=== PATIENT | male | born 1990 | race Hispanic/Latino ===

== ENCOUNTER 2023-02-09 10:29 | Emergency (ER) | payer OTHER, SELFPAY ==
--- OUTSIDE RECORDS SUMMARY | 2023-02-09 10:35 | XMS REPORT | Continuity of Care Document ---
:1990 Author Organization [facility] t Address [address] [facility] [address] [place] [address] Care Team Providers Name Role Phone Jenni Dhillon Primary Care Physician [phone] Problems This patient has no known problems. Allergies, Adverse Reactions, Alerts This patient has no known allergies or adverse reactions. Medications Ordered Filled Start Stop Current Ordering Indication Dosage Frequency Signature Comments Components Source Medication Medication Date Date Medication? Clinician (SIG) Name Name TAKE 1 0 No TABLET 9-14 TWICE 00:00: DAILY. 00 TAKE 1 0 No TABLET 9-14 TWICE 00:00: DAILY. 00 TAKE 1 2021-0 No TABLET 9-14 TWICE 00:00: DAILY. 00 Dose 2021-0 No Unknown 1-31 00:00: 00 Dose 2021-0 No Unknown 1-31 00:00: 00 Dose 2021-0 No Unknown 1-31 00:00: 00 Dose 2021-0 No Unknown 1-24 00:00: 00 Dose 2021-0 No Unknown 1-24 00:00: 00 Dose 2021-0 No Unknown 1-24 00:00: 00 Vital Signs Vital Name Observation Time Observation Value Comments Source BP Systolic 2022-07-03 09:02:00 157 mm[Hg] BP Diastolic 2022-07-03 09:02:00 92 mm[Hg] Weight Measured 2022-07-03 09:02:00 273.60 pounds Height Measured 2022-07-03 09:02:00 70.00 inches Body Temperature 2022-07-03 09:02:00 98.10 degrees Heart Rate 2022-07-03 09:02:00 87.00 /min Respiratory Rate 2022-07-03 09:02:00 16.00 /min BP Systolic 2022-06-05 08:58:00 174 mm[Hg] BP Diastolic 2022-06-05 08:58:00 99 mm[Hg] Weight Measured 2022-06-05 08:58:00 281.00 pounds Height Measured 2022-06-05 08:58:00 70.00 inches Body Temperature 2022-06-05 08:58:00 98.30 degrees Heart Rate 2022-06-05 08:58:00 81.00 /min Respiratory Rate 2022-06-05 08:58:00 18.00 /min BP Systolic 2022-06-03 11:35:00 170 mm[Hg] BP Diastolic 2022-06-03 11:35:00 104 mm[Hg] Weight Measured 2022-06-03 11:35:00 279.60 pounds Height Measured 2022-06-03 11:35:00 70.00 inches Body Temperature 2022-06-03 11:35:00 98.20 degrees Heart Rate 2022-06-03 11:35:00 83.00 /min Respiratory Rate 2022-06-03 11:35:00 16.00 /min BP Systolic 2021-10-28 09:05:00 158 mm[Hg] BP Diastolic 2021-10-28 09:05:00 95 mm[Hg] Weight Measured 2021-10-28 09:05:00 260.00 pounds Height Measured 2021-10-28 09:05:00 70.00 inches Body Temperature 2021-10-28 09:05:00 97.80 degrees Heart Rate 2021-10-28 09:05:00 80.00 /min Respiratory Rate 2021-10-28 09:05:00 16.00 /min BP Systolic 2021-10-14 17:03:00 165 mm[Hg] BP Diastolic 2021-10-14 17:03:00 95 mm[Hg] Weight Measured 2021-10-14 17:03:00 260.20 pounds Height Measured 2021-10-14 17:03:00 70.00 inches Body Temperature 2021-10-14 17:03:00 97.50 degrees Heart Rate 2021-10-14 17:03:00 85.00 /min Respiratory Rate 2021-10-14 17:03:00 16.00 /min BP Systolic 2021-10-13 10:19:00 151 mm[Hg] BP Diastolic 2021-10-13 10:19:00 83 mm[Hg] Weight Measured 2021-10-13 10:19:00 255.40 pounds Height Measured 2021-10-13 10:19:00 70.00 inches Body Temperature 2021-10-13 10:19:00 98.10 degrees Heart Rate 2021-10-13 10:19:00 79.00 /min Respiratory Rate 2021-10-13 10:19:00 BP Systolic 2019-01-20 08:49:00 137 mm[Hg] BP Diastolic 2019-01-20 08:49:00 74 mm[Hg] Weight Measured 2019-01-20 08:49:00 208.00 pounds Height Measured 2019-01-20 08:49:00 70.00 inches Body Temperature 2019-01-20 08:49:00 98.10 degrees Heart Rate 2019-01-20 08:49:00 78.00 /min Respiratory Rate 2019-01-20 08:49:00 16.00 /min Procedures This patient has no known procedures. Plan of Care Planned Activity Planned Date Details Comments Source Goal Plan of Care Note [code = 71913-1] Goal Plan of Care Note [code = 82138-0] Goal Plan of Care Note [code = 67117-2] Goal Plan of Care Note [code = 39654-3] Goal Plan of Care Note [code = 79645-2] Goal Plan of Care Note [code = 14544-9] Goal Plan of Care Note [code = 77267-4] Goal Plan of Care Note [code = 62638-5] Goal Plan of Care Note [code = 86662-8] Goal Plan of Care Note [code = 50114-0] Goal Plan of Care Note [code = 29148-9] Goal Plan of Care Note [code = 99451-3] Goal Plan of Care Note [code = 98001-5] Goal Plan of Care Note [code = 04338-0] Goal Plan of Care Note [code = 74195-5] Goal Plan of Care Note [code = 06495-0] Goal Plan of Care Note [code = 29548-2] Goal Plan of Care Note [code = 22129-6] Goal Plan of Care Note [code = 39460-3] Goal Plan of Care Note [code = 79711-5] Goal Plan of Care Note [code = 02720-5] Goal Plan of Care Note [code = 58823-6] Goal Plan of Care Note [code = 81662-2] Goal Plan of Care Note [code = 42472-2] Goal Plan of Care Note [code = 28009-3] Goal Plan of Care Note [code = 83043-6] Goal Plan of Care Note [code = 55993-8] Goal Plan of Care Note [code = 56915-5] Goal Plan of Care Note [code = 82215-2] Goal Plan of Care Note [code = 31565-4] Goal Plan of Care Note [code = 50957-8] Goal Plan of Care Note [code = 30833-6] Goal Plan of Care Note [code = 99929-2] Goal Plan of Care Note [code = 05586-0] Goal Plan of Care Note [code = 16326-7] Goal Plan of Care Note [code = 21266-2] Goal Plan of Care Note [code = 95836-6] Goal Plan of Care Note [code = 89234-0] Goal Plan of Care Note [code = 23724-0] Goal Plan of Care Note [code = 17254-9] Goal Plan of Care Note [code = 07239-4] Goal Plan of Care Note [code = 91039-1] Goal Plan of Care Note [code = 16946-3] Goal Plan of Care Note [code = 52957-5] Goal Plan of Care Note [code = 79445-2] Goal Plan of Care Note [code = 76833-0] Goal Plan of Care Note [code = 38383-6] Goal Plan of Care Note [code = 52694-5] Encounters Start End Encounter Admission Attending Care Care Encounter Source Date/Time Date/Time Type Type Clinicians Facility Department ID 2023-01-25 2023-01-25 Outpatient CHUCK WOODS [id number] [place] 08:30:53 08:30:53 0508 F Portillo 2022-07-10 2022-07-10 Outpatient CHUCK WOODS [id number] [place] 08:38:57 08:38:57 1021 F Portillo 2022-07-03 2022-07-03 Outpatient CHUCK WOODS [id number] [place] 08:55:06 08:55:06 101 F Portillo 2022-07-03 2022-07-03 Outpatient [id number] 00:00:00 00:00:00 Visit 99ad-4aa8 9ad-4aa8-a -k940-e1n 732-f4ad83 [id number] [id number] 2022-06-05 2022-06-05 Outpatient [id number]-3 00:00:00 00:00:00 Visit 5y67-356v t38-298d-i -v6w3-388 2p0-1415ji 6bztf4757 oq9762 2022-06-03 2022-06-03 Outpatient [id number] 00:00:00 00:00:00 Visit ha01-63g7 c32-09i9-n -c5u6-80h 3w5-34ml23 [id number] Results Test Description Test Time Test Comments Results Result Comments Source CULTURE, URINE 2023-01-27 SPECIMEN NUMBER: 14:23:[id number] CULTURE, URINE SPECIMEN NUMBER: [id number] SPECIMEN COMMENT: URINE SOURCE: URINE REPORT STATUS: FINAL FINAL REPORT: 01/27/2023 <10,000 CFU/ML UROGENITAL ELE PRESENT NO COMMON PATHOGENS UNLESS OTHERWISE INDICATED, ALL TESTING PERFORMED AT [facility] [address] [place] [address] CLAIMS CORRESPONDENCE CLERK: LILY PIERRE M.D. CLIA NUMBER [id number] [place]. [id number] HEMOGLOBIN A1c 2022-06-06 09:08:40 Test Item Value Reference Range Interpretation Comme nts HEMOGLOBIN A1c (test code = 6.0 % 4.2-5.6 H UNLESS OTHERWISE INDICATED, ALL 60499) [facility] [address] [place] [address] CLAIMS CORRESPONDENCE CLERK: NICOLA MOLINA M.D. CLIA NUMBER [id number] CAP ACCREDITATION N O. [id number] COMPREHENSIVE METABOLIC [id number] 03:11:24 Test Item Value Reference Range Interpretation Comments GLUCOSE (test code = 104 MG/DL 70-99 H 2217) BUN (test code = 24 MG/DL 6-20 H 2207) CREATININE (test 0.65 MG/DL 0.80-1.40 L code = 2213) eGFR (2020 CKD-EPI) 130 >60 (test code = 22026) ML/MIN/1.73 CALC BUN/CREAT (test 37 RATIO 6-28 H code = 223) SODIUM (test code = 142 MEQ/L 092-242 1614) POTASSIUM (test code 4.0 MEQ/L 3.5-5.4 = 2227) CHLORIDE (test code 103 MEQ/L 95-107 = 2214) CARBON DIOXIDE (test 25 MEQ/L 19-31 code = 2205) CALCIUM (test code = 10.0 MG/DL 8.5-10.5 2208) PROTEIN, TOTAL (test 7.3 G/DL 6.1-8.3 code = 2228) ALBUMIN (test code = 4.4 G/DL 3.5-5.2 2200) CALC GLOBULIN (test 2.9 G/DL 1.9-3.7 code = 2239) CALC A/G RATIO (test 1.5 RATIO 1.0-2.6 code = 2233) BILIRUBIN, TOTAL 0.4 MG/DL See_Comment [Automated message] (test code = 2206) The syste m which generated this result transmit joesph reference range : <=1.2. The refe rence range was not u sed to interpret th is result as normal/abnormal . ALKALINE PHOSPHATASE 106 U/L 40-115 (test code = 2203) AST (test code = 26 U/L 9-50 2217) ALT (test code = 57 U/L 5-50 H 2218) LIPID [id number] 03:11:24 Test Item Value Reference Range Interpretation Comments CHOLESTEROL (test 203 MG/DL <200 H code = 2210) TRIGLYCERIDES (test 92 MG/DL <150 code = 2232) HDL CHOLESTEROL (test 70 MG/DL >39 code = 2220) CALC LDL CHOL (test 113 MG/DL <100 H NOTE: C ALCULATED LDL code = 2237) IS BASED ON GUMARO-CHESTER METHOD WHICHINCLUDES ADJUSTABLE TRIGLYCERIDE:VL DL CHOLESTEROL RAT IO.THIS FACTOR VARIES B Y MEASURED TRIGLY CERIDE AND NON-HDLCHOL ESTEROL CONCENTRATIONS WITH INCREASED CALCU LATED LDL SEENIN HIGH ER TRIGLYCERIDE OR LOWER NON-HDL SPECIME NS. FOR MOREINFORMATION , SEE CLIENT ANNOUNCE MENT AT [email or web address] [email or web address] [email or web address] LDL/HDL 1.61 RATIO <3.55 UNLESS O THERWISE (test code = 2238) INDICATED , ALL TESTING PERFORMED [facility], [facility]. [address] [place] [address] [facility] DIRECTOR: NICOLA MOLINA M.D. IA NUMBER [id number] CAP ACCREDITATION N O. [id number] COMPREHENSIVE METABOLIC [id number] 00:00:00 Test Item Value Reference Range Interpretation Comments GLUCOSE (test code = 2217) 104 MG/DL BUN (test code = 2208) 24 MG/DL CREATININE (test code = 2214) 0.65 MG/DL eGFR (2020 CKD-EPI) (test 130 ML/MIN/1.73 code = 19649) CALC BUN/CREAT (test code = 37 RATIO 2234) SODIUM (test code = 2231) 142 MEQ/L POTASSIUM (test code = 2228) 4.0 MEQ/L CHLORIDE (test code = 2215) 103 MEQ/L CARBON DIOXIDE (test code = 25 MEQ/L 2205) CALCIUM (test code = 2209) 10.0 MG/DL PROTEIN, TOTAL (test code = 7.3 G/DL 2228) ALBUMIN (test code = 2201) 4.4 G/DL CALC GLOBULIN (test code = 2.9 G/DL 0) CALC A/G RATIO (test code = 1.5 RATIO 2233) BILIRUBIN, TOTAL (test code = 0.4 MG/DL 2206) ALKALINE PHOSPHATASE (test 106 U/L code = 2204) AST (test code = 2218) 26 U/L ALT (test code = 2219) 57 U/L HEMOGLOBIN [id number] 00:00:00 Test Item Value Reference Range Interpretation Comments HEMOGLOBIN A1c (test code = 50362) 6.0 % HEMOGLOBIN [id number] 00:00:00 Test Item Value Reference Range Interpretation Comments HEMOGLOBIN A1c (test code = 26756) 6.0 % HEMOGLOBIN [id number] 00:00:00 Test Item Value Reference Range Interpretation Comments HEMOGLOBIN A1c (test code = 58958) 6.0 % COMPREHENSIVE METABOLIC [id number] 00:00:00 Test Item Value Reference Range Interpretation Comments GLUCOSE (test code = 2217) 104 MG/DL BUN (test code = 2208) 24 MG/DL CREATININE (test code = 2214) 0.65 MG/DL eGFR (2020 CKD-EPI) (test 130 ML/MIN/1.73 code = 82432) CALC BUN/CREAT (test code = 37 RATIO 2235) SODIUM (test code = 2231) 142 MEQ/L POTASSIUM (test code = 2228) 4.0 MEQ/L CHLORIDE (test code = 2215) 103 MEQ/L CARBON DIOXIDE (test code = 25 MEQ/L 2205) CALCIUM (test code = 220) 10.0 MG/DL PROTEIN, TOTAL (test code = 7.3 G/DL 2228) ALBUMIN (test code = 220) 4.4 G/DL CALC GLOBULIN (test code = 2.9 G/DL 2239) CALC A/G RATIO (test code = 1.5 RATIO 2233) BILIRUBIN, TOTAL (test code = 0.4 MG/DL 2206) ALKALINE PHOSPHATASE (test 106 U/L code = 2204) AST (test code = 2218) 26 U/L ALT (test code = 2219) 57 U/L LIPID [id number] 00:00:00 Test Item Value Reference Range Interpretation Comments CHOLESTEROL (test code = 2210) 203 MG/DL TRIGLYCERIDES (test code = 2232) 92 MG/DL HDL CHOLESTEROL (test code = 2220) 70 MG/DL CALC LDL CHOL (test code = 2237) 113 MG/DL RISK RATIO LDL/HDL (test code = 1.61 RATIO 2238) LIPID [id number] 00:00:00 Test Item Value Reference Range Interpretation Comments CHOLESTEROL (test code = 2210) 203 MG/DL TRIGLYCERIDES (test code = 2232) 92 MG/DL HDL CHOLESTEROL (test code = 2220) 70 MG/DL CALC LDL CHOL (test code = 2237) 113 MG/DL RISK RATIO LDL/HDL (test code = 1.61 RATIO 2238) COMPREHENSIVE METABOLIC [id number] 00:00:00 Test Item Value Reference Range Interpretation Comments GLUCOSE (test code = 2217) 104 MG/DL BUN (test code = 2208) 24 MG/DL CREATININE (test code = 2214) 0.65 MG/DL eGFR (2020 CKD-EPI) (test 130 ML/MIN/1.73 code = 45504) CALC BUN/CREAT (test code = 37 RATIO 2235) SODIUM (test code = 2231) 142 MEQ/L POTASSIUM (test code = 2228) 4.0 MEQ/L CHLORIDE (test code = 2215) 103 MEQ/L CARBON DIOXIDE (test code = 25 MEQ/L 2205) CALCIUM (test code = 2209) 10.0 MG/DL PROTEIN, TOTAL (test code = 7.3 G/DL 2228) ALBUMIN (test code = 2201) 4.4 G/DL CALC GLOBULIN (test code = 2.9 G/DL 2240) CALC A/G RATIO (test code = 1.5 RATIO 2233) BILIRUBIN, TOTAL (test code = 0.4 MG/DL 2206) ALKALINE PHOSPHATASE (test 106 U/L code = 2204) AST (test code = 2218) 26 U/L ALT (test code = 2219) 57 U/L HEMOGLOBIN [id number] 00:00:00 Test Item Value Reference Range Interpretation Comments HEMOGLOBIN A1c (test code = 28555) 6.0 % HEMOGLOBIN [id number] 00:00:00 Test Item Value Reference Range Interpretation Comments HEMOGLOBIN A1c (test code = 08387) 6.0 % COMPREHENSIVE METABOLIC [id number] 00:00:00 Test Item Value Reference Range Interpretation Comments GLUCOSE (test code = 2217) 104 MG/DL BUN (test code = 2208) 24 MG/DL CREATININE (test code = 2214) 0.65 MG/DL eGFR (2020 CKD-EPI) (test 130 ML/MIN/1.73 code = 53032) CALC BUN/CREAT (test code = 37 RATIO 2235) SODIUM (test code = 2231) 142 MEQ/L POTASSIUM (test code = 2228) 4.0 MEQ/L CHLORIDE (test code = 2215) 103 MEQ/L CARBON DIOXIDE (test code = 25 MEQ/L 2205) CALCIUM (test code = 2209) 10.0 MG/DL PROTEIN, TOTAL (test code = 7.3 G/DL 2228) ALBUMIN (test code = 2201) 4.4 G/DL CALC GLOBULIN (test code = 2.9 G/DL 2240) CALC A/G RATIO (test code = 1.5 RATIO 2234) BILIRUBIN, TOTAL (test code = 0.4 MG/DL 2206) ALKALINE PHOSPHATASE (test 106 U/L code = 2204) AST (test code = 2218) 26 U/L ALT (test code = 2219) 57 U/L HEMOGLOBIN [id number] 00:00:00 Test Item Value Reference Range Interpretation Comments HEMOGLOBIN A1c (test code = 32132) 6.0 % LIPID [id number] 00:00:00 Test Item Value Reference Range Interpretation Comments CHOLESTEROL (test code = 2210) 203 MG/DL TRIGLYCERIDES (test code = 2232) 92 MG/DL HDL CHOLESTEROL (test code = 2220) 70 MG/DL CALC LDL CHOL (test code = 2237) 113 MG/DL RISK RATIO LDL/HDL (test code = 1.61 RATIO 2238) LIPID [id number] 00:00:00 Test Item Value Reference Range Interpretation Comments CHOLESTEROL (test code = 2210) 203 MG/DL TRIGLYCERIDES (test code = 2232) 92 MG/DL HDL CHOLESTEROL (test code = 2220) 70 MG/DL CALC LDL CHOL (test code = 2237) 113 MG/DL RISK RATIO LDL/HDL (test code = 1.61 RATIO 2238) LIPID [id number] 05:12:50 Test Item Value Reference Range Interpretation Comments CHOLESTEROL (test 178 MG/DL <200 code = 2210) TRIGLYCERIDES (test 177 MG/DL <150 H code = 2232) HDL CHOLESTEROL (test 67 MG/DL >39 code = 2220) CALC LDL CHOL (test 84 MG/DL <100 NOTE: C ALCULATED LDL code = 2237) IS BASED ON GUMARO-CHESTER METHOD WHICHINCLUDES ADJUSTABLE TRIGLYCERIDE:VL DL CHOLESTEROL RAT IO.THIS FACTOR VARIES B Y MEASURED TRIGLY CERIDE AND NON-HDLCHOL ESTEROL CONCENTRATIONS WITH INCREASED CALCU LATED LDL SEENIN HIGH ER TRIGLYCERIDE OR LOWER NON-HDL SPECIME NS. FOR MOREINFORMATION , SEE CLIENT ANNOUNCE MENT AT [email or web address] [email or web address] LDL/HDL 1.25 RATIO <3.55 (test code = 2238) COMPREHENSIVE METABOLIC [id number] 05:12:50 Test Item Value Reference Range Interpretation Comments GLUCOSE (test code = 137 MG/DL 70-99 H 2216) BUN (test code = 21 MG/DL 6-20 H 2207) CREATININE (test 0.75 MG/DL 0.80-1.40 L code = 2213) eGFR (2020 CKD-EPI) 125 >60 (test code = 03805) ML/MIN/1.73 CALC BUN/CREAT (test 28 RATIO 6-28 code = 223) SODIUM (test code = 144 MEQ/L 511-062 2596) POTASSIUM (test code 4.2 MEQ/L 3.5-5.4 = 2227) CHLORIDE (test code 105 MEQ/L 95-107 = 2214) CARBON DIOXIDE (test 25 MEQ/L 19-31 code = 2205) CALCIUM (test code = 9.7 MG/DL 8.5-10.5 2208) PROTEIN, TOTAL (test 6.7 G/DL 6.1-8.3 code = 2228) ALBUMIN (test code = 4.0 G/DL 3.5-5.2 2200) CALC GLOBULIN (test 2.7 G/DL 1.9-3.7 code = 2239) CALC A/G RATIO (test 1.5 RATIO 1.0-2.6 code = 223) BILIRUBIN, TOTAL 0.2 MG/DL See_Comment [Automated message] (test code = 2206) The syste m which generated this result transmit joesph reference range : <=1.2. The refe rence range was not u sed to interpret th is result as normal/abnormal . ALKALINE PHOSPHATASE 150 U/L 40-115 H (test code = 2203) AST (test code = 19 U/L 9-50 2217) ALT (test code = 42 U/L 5-50 2218) TSH, THIRD [id number] 04:32:50 Test Item Value Reference Range Interpretation Comments TSH, THIRD 1.210 UIU/ML 0.400-4.100 UNLESS OTHERWI SE GENERATION (test INDICATED, ALL TESTING code = 8211) PERFORMED [facility], [facility]. [address] [place] [id number] [place] [address] DIRECTOR: NICOLA MOLINA M.D. CLIA NUMBER [id number] CAP ACCREDITATION N O. [id number] HEMOGLOBIN [id number] 04:21:02 Test Item Value Reference Range Interpretation Comments HEMOGLOBIN A1c (test code = 24214) 5.7 % 4.2-5.6 H CBC W/AUTO DIFF WITH [id number] 04:16:55 Test Item Value Reference Range Interpretation Comments WBC (test code = 12.7 K/UL 3.5-11.0 H 1001) RBC (test code = 4.57 M/UL 4.50-6.10 1002) HEMOGLOBIN (test code 13.7 G/DL 13.5-17.0 = 1003) HEMATOCRIT (test code 40.7 % 40.0-51.0 = 1004) MCV (test code = 89.1 fL 80.0-99.0 1005) MCH (test code = 30.0 PG 25.0-33.0 1006) MCHC (test code = 33.7 G/DL 31.0-36.0 1007) RDW (test code = 12.8 % 11.5-15.0 1038) NEUTROPHILS (test 84.6 % code = 1008) LYMPHOCYTES (test 6.0 % code = 1010) MONOCYTES (test code 8.7 % = 1011) EOSINOPHILS (test 0.7 % code = 1012) BASOPHILS (test code 0.0 % = 1013) PLATELET COUNT (test 235 K/UL 130-400 code = 1015) ABSOLUTE NEUTROPHILS 10.74 K/UL 1.50-7.50 H (test code = 1066) ABSOLUTE LYMPHOCYTES 0.76 K/UL 1.00-4.00 L (test code = 1067) ABSOLUTE MONOCYTES 1.10 K/UL 0.20-1.00 H (test code = 1068) ABSOLUTE EOSINOPHILS 0.09 K/UL 0.00-0.50 (test code = 1040) ABSOLUTE BASOPHILS 0.00 K/UL 0.00-0.20 (test code = 1069) COMMENTS (test code = (NOTE) NO SP ECIFIC RBC 1016) ABNORMALITIES IDENTIFIED PLAT ELETS APPEAR NORMAL CBC W/AUTO DIFF WITH PLATELETS [ADDED]2021-10-16 00:00:00 Test Item Value Reference Range Interpretation Comments WBC (test code = 1001) 12.7 K/UL RBC (test code = 1002) 4.57 M/UL HEMOGLOBIN (test code = 1003) 13.7 G/DL HEMATOCRIT (test code = 1004) 40.7 % MCV (test code = 1005) 89.1 fL MCH (test code = 1006) 30.0 PG MCHC (test code = 1007) 33.7 G/DL RDW (test code = 1038) 12.8 % NEUTROPHILS (test code = 1008) 84.6 % LYMPHOCYTES (test code = 1010) 6.0 % MONOCYTES (test code = 1011) 8.7 % EOSINOPHILS (test code = 1012) 0.7 % BASOPHILS (test code = 1013) 0.0 % PLATELET COUNT (test code = 1015) 235 K/UL ABSOLUTE NEUTROPHILS (test code = 10.74 K/UL 1066) ABSOLUTE LYMPHOCYTES (test code = 0.76 K/UL 1067) ABSOLUTE MONOCYTES (test code = 1.10 K/UL 1068) ABSOLUTE EOSINOPHILS (test code = 0.09 K/UL 1040) ABSOLUTE BASOPHILS (test code = 0.00 K/UL 1069) COMMENTS (test code = 1016) (NOTE) HEMOGLOBIN A1c [ADDED]2021-10-16 00:00:00 Test Item Value Reference Range Interpretation Comments HEMOGLOBIN A1c (test code = 64766) 5.7 % CBC W/AUTO DIFF WITH PLATELETS [ADDED]2021-10-16 00:00:00 Test Item Value Reference Range Interpretation Comments WBC (test code = 1001) 12.7 K/UL RBC (test code = 1002) 4.57 M/UL HEMOGLOBIN (test code = 1003) 13.7 G/DL HEMATOCRIT (test code = 1004) 40.7 % MCV (test code = 1005) 89.1 fL MCH (test code = 1006) 30.0 PG MCHC (test code = 1007) 33.7 G/DL RDW (test code = 1038) 12.8 % NEUTROPHILS (test code = 1008) 84.6 % LYMPHOCYTES (test code = 1010) 6.0 % MONOCYTES (test code = 1011) 8.7 % EOSINOPHILS (test code = 1012) 0.7 % BASOPHILS (test code = 1013) 0.0 % PLATELET COUNT (test code = 1015) 235 K/UL ABSOLUTE NEUTROPHILS (test code = 10.74 K/UL 1066) ABSOLUTE LYMPHOCYTES (test code = 0.76 K/UL 1067) ABSOLUTE MONOCYTES (test code = 1.10 K/UL 1068) ABSOLUTE EOSINOPHILS (test code = 0.09 K/UL 1040) ABSOLUTE BASOPHILS (test code = 0.00 K/UL 1069) COMMENTS (test code = 1016) (NOTE) HEMOGLOBIN A1c [ADDED]2021-10-16 00:00:00 Test Item Value Reference Range Interpretation Comments HEMOGLOBIN A1c (test code = 37008) 5.7 % HEMOGLOBIN A1c [ADDED]2021-10-16 00:00:00 Test Item Value Reference Range Interpretation Comments HEMOGLOBIN A1c (test code = 78732) 5.7 % HEMOGLOBIN A1c [ADDED]2021-10-16 00:00:00 Test Item Value Reference Range Interpretation Comments HEMOGLOBIN A1c (test code = 09272) 5.7 % HEMOGLOBIN A1c [ADDED]2021-10-16 00:00:00 Test Item Value Reference Range Interpretation Comments HEMOGLOBIN A1c (test code = 23005) 5.7 % LIPID PANEL [ADDED]2021-10-16 00:00:00 Test Item Value Reference Range Interpretation Comments CHOLESTEROL (test code = 2210) 178 MG/DL TRIGLYCERIDES (test code = 2232) 177 MG/DL HDL CHOLESTEROL (test code = 2220) 67 MG/DL CALC LDL CHOL (test code = 2237) 84 MG/DL RISK RATIO LDL/HDL (test code = 1.25 RATIO 2238) LIPID PANEL [ADDED]2021-10-16 00:00:00 Test Item Value Reference Range Interpretation Comments CHOLESTEROL (test code = 2210) 178 MG/DL TRIGLYCERIDES (test code = 2232) 177 MG/DL HDL CHOLESTEROL (test code = 2220) 67 MG/DL CALC LDL CHOL (test code = 2237) 84 MG/DL RISK RATIO LDL/HDL (test code = 1.25 RATIO 2238) COMPREHENSIVE METABOLIC PANEL [ADDED]2021-10-16 00:00:00 Test Item Value Reference Range Interpretation Comments GLUCOSE (test code = 2217) 137 MG/DL BUN (test code = 2208) 21 MG/DL CREATININE (test code = 2214) 0.75 MG/DL eGFR (2020 CKD-EPI) (test 125 ML/MIN/1.73 code = 69939) CALC BUN/CREAT (test code = 28 RATIO 2235) SODIUM (test code = 2231) 144 MEQ/L POTASSIUM (test code = 2228) 4.2 MEQ/L CHLORIDE (test code = 2215) 105 MEQ/L CARBON DIOXIDE (test code = 25 MEQ/L 2206) CALCIUM (test code = 2209) 9.7 MG/DL PROTEIN, TOTAL (test code = 6.7 G/DL 2228) ALBUMIN (test code = 2201) 4.0 G/DL CALC GLOBULIN (test code = 2.7 G/DL 2240) CALC A/G RATIO (test code = 1.5 RATIO 2234) BILIRUBIN, TOTAL (test code = 0.2 MG/DL 2206) ALKALINE PHOSPHATASE (test 150 U/L code = 2204) AST (test code = 2218) 19 U/L ALT (test code = 2219) 42 U/L COMPREHENSIVE METABOLIC PANEL [ADDED]2021-10-16 00:00:00 Test Item Value Reference Range Interpretation Comments GLUCOSE (test code = 2217) 137 MG/DL BUN (test code = 2208) 21 MG/DL CREATININE (test code = 2214) 0.75 MG/DL eGFR (2020 CKD-EPI) (test 125 ML/MIN/1.73 code = 69776) CALC BUN/CREAT (test code = 28 RATIO 2235) SODIUM (test code = 2231) 144 MEQ/L POTASSIUM (test code = 2228) 4.2 MEQ/L CHLORIDE (test code = 2215) 105 MEQ/L CARBON DIOXIDE (test code = 25 MEQ/L 2205) CALCIUM (test code = 2209) 9.7 MG/DL PROTEIN, TOTAL (test code = 6.7 G/DL 2228) ALBUMIN (test code = 2201) 4.0 G/DL CALC GLOBULIN (test code = 2.7 G/DL 2240) CALC A/G RATIO (test code = 1.5 RATIO 2234) BILIRUBIN, TOTAL (test code = 0.2 MG/DL 2206) ALKALINE PHOSPHATASE (test 150 U/L code = 2204) AST (test code = 2218) 19 U/L ALT (test code = 2219) 42 U/L TSH, THIRD GENERATION [ADDED]2021-10-16 00:00:00 Test Item Value Reference Range Interpretation Comments TSH, THIRD GENERATION (test code 1.210 UIU/ML = 2821) TSH, THIRD GENERATION [ADDED]2021-10-16 00:00:00 Test Item Value Reference Range Interpretation Comments TSH, THIRD GENERATION (test code 1.210 UIU/ML = 2821) TSH, THIRD GENERATION [ADDED]2021-10-16 00:00:00 Test Item Value Reference Range Interpretation Comments TSH, THIRD GENERATION (test code 1.210 UIU/ML = 2821) HEMOGLOBIN A1c [ADDED]2021-10-16 00:00:00 Test Item Value Reference Range Interpretation Comments HEMOGLOBIN A1c (test code = 39169) 5.7 % LIPID PANEL [ADDED]2021-10-16 00:00:00 Test Item Value Reference Range Interpretation Comments CHOLESTEROL (test code = 2210) 178 MG/DL TRIGLYCERIDES (test code = 2232) 177 MG/DL HDL CHOLESTEROL (test code = 2220) 67 MG/DL CALC LDL CHOL (test code = 2237) 84 MG/DL RISK RATIO LDL/HDL (test code = 1.25 RATIO 2238) LIPID PANEL [ADDED]2021-10-16 00:00:00 Test Item Value Reference Range Interpretation Comments CHOLESTEROL (test code = 2210) 178 MG/DL TRIGLYCERIDES (test code = 2232) 177 MG/DL HDL CHOLESTEROL (test code = 2220) 67 MG/DL CALC LDL CHOL (test code = 2237) 84 MG/DL RISK RATIO LDL/HDL (test code = 1.25 RATIO 2238) COMPREHENSIVE METABOLIC PANEL [ADDED]2021-10-16 00:00:00 Test Item Value Reference Range Interpretation Comments GLUCOSE (test code = 2217) 137 MG/DL BUN (test code = 2208) 21 MG/DL CREATININE (test code = 2214) 0.75 MG/DL eGFR (2020 CKD-EPI) (test 125 ML/MIN/1.73 code = 13221) CALC BUN/CREAT (test code = 28 RATIO 2235) SODIUM (test code = 2231) 144 MEQ/L POTASSIUM (test code = 2228) 4.2 MEQ/L CHLORIDE (test code = 2215) 105 MEQ/L CARBON DIOXIDE (test code = 25 MEQ/L 2205) CALCIUM (test code = 2209) 9.7 MG/DL PROTEIN, TOTAL (test code = 6.7 G/DL 2228) ALBUMIN (test code = 2201) 4.0 G/DL CALC GLOBULIN (test code = 2.7 G/DL 2239) CALC A/G RATIO (test code = 1.5 RATIO 2234) BILIRUBIN, TOTAL (test code = 0.2 MG/DL 2207) ALKALINE PHOSPHATASE (test 150 U/L code = 2204) AST (test code = 2218) 19 U/L ALT (test code = 2219) 42 U/L COMPREHENSIVE METABOLIC PANEL [ADDED]2021-10-16 00:00:00 Test Item Value Reference Range Interpretation Comments GLUCOSE (test code = 2217) 137 MG/DL BUN (test code = 2208) 21 MG/DL CREATININE (test code = 2214) 0.75 MG/DL eGFR (2020 CKD-EPI) (test 125 ML/MIN/1.73 code = 21211) CALC BUN/CREAT (test code = 28 RATIO 2235) SODIUM (test code = 2231) 144 MEQ/L POTASSIUM (test code = 2228) 4.2 MEQ/L CHLORIDE (test code = 2215) 105 MEQ/L CARBON DIOXIDE (test code = 25 MEQ/L 2205) CALCIUM (test code = 2209) 9.7 MG/DL PROTEIN, TOTAL (test code = 6.7 G/DL 2228) ALBUMIN (test code = 2201) 4.0 G/DL CALC GLOBULIN (test code = 2.7 G/DL 2239) CALC A/G RATIO (test code = 1.5 RATIO 2234) BILIRUBIN, TOTAL (test code = 0.2 MG/DL 2206) ALKALINE PHOSPHATASE (test 150 U/L code = 2204) AST (test code = 2218) 19 U/L ALT (test code = 2219) 42 U/L TSH, THIRD GENERATION [ADDED]2021-10-16 00:00:00 Test Item Value Reference Range Interpretation Comments TSH, THIRD GENERATION (test code 1.210 UIU/ML = 2821) TSH, THIRD GENERATION [ADDED]2021-10-16 00:00:00 Test Item Value Reference Range Interpretation Comments TSH, THIRD GENERATION (test code 1.210 UIU/ML = 2821) TSH, THIRD GENERATION [ADDED]2021-10-16 00:00:00 Test Item Value Reference Range Interpretation Comments TSH, THIRD GENERATION (test code 1.210 UIU/ML = 2821) CBC W/AUTO DIFF WITH PLATELETS [ADDED]2021-10-16 00:00:00 Test Item Value Reference Range Interpretation Comments WBC (test code = 1001) 12.7 K/UL RBC (test code = 1002) 4.57 M/UL HEMOGLOBIN (test code = 1003) 13.7 G/DL HEMATOCRIT (test code = 1004) 40.7 % MCV (test code = 1005) 89.1 fL MCH (test code = 1006) 30.0 PG MCHC (test code = 1007) 33.7 G/DL RDW (test code = 1038) 12.8 % NEUTROPHILS (test code = 1008) 84.6 % LYMPHOCYTES (test code = 1010) 6.0 % MONOCYTES (test code = 1011) 8.7 % EOSINOPHILS (test code = 1012) 0.7 % BASOPHILS (test code = 1013) 0.0 % PLATELET COUNT (test code = 1015) 235 K/UL ABSOLUTE NEUTROPHILS (test code = 10.74 K/UL 1066) ABSOLUTE LYMPHOCYTES (test code = 0.76 K/UL 1067) ABSOLUTE MONOCYTES (test code = 1.10 K/UL 1068) ABSOLUTE EOSINOPHILS (test code = 0.09 K/UL 1040) ABSOLUTE BASOPHILS (test code = 0.00 K/UL 1069) COMMENTS (test code = 1016) (NOTE) CBC W/AUTO DIFF WITH PLATELETS [ADDED]2021-10-16 00:00:00 Test Item Value Reference Range Interpretation Comments WBC (test code = 1001) 12.7 K/UL RBC (test code = 1002) 4.57 M/UL HEMOGLOBIN (test code = 1003) 13.7 G/DL HEMATOCRIT (test code = 1004) 40.7 % MCV (test code = 1005) 89.1 fL MCH (test code = 1006) 30.0 PG MCHC (test code = 1007) 33.7 G/DL RDW (test code = 1038) 12.8 % NEUTROPHILS (test code = 1008) 84.6 % LYMPHOCYTES (test code = 1010) 6.0 % MONOCYTES (test code = 1011) 8.7 % EOSINOPHILS (test code = 1012) 0.7 % BASOPHILS (test code = 1013) 0.0 % PLATELET COUNT (test code = 1015) 235 K/UL ABSOLUTE NEUTROPHILS (test code = 10.74 K/UL 1066) ABSOLUTE LYMPHOCYTES (test code = 0.76 K/UL 1067) ABSOLUTE MONOCYTES (test code = 1.10 K/UL 1068) ABSOLUTE EOSINOPHILS (test code = 0.09 K/UL 1040) ABSOLUTE BASOPHILS (test code = 0.00 K/UL 1069) COMMENTS (test code = 1016) (NOTE) CBC W/AUTO DIFF WITH PLATELETS [ADDED]2021-10-16 00:00:00 Test Item Value Reference Range Interpretation Comments WBC (test code = 1001) 12.7 K/UL RBC (test code = 1002) 4.57 M/UL HEMOGLOBIN (test code = 1003) 13.7 G/DL HEMATOCRIT (test code = 1004) 40.7 % MCV (test code = 1005) 89.1 fL MCH (test code = 1006) 30.0 PG MCHC (test code = 1007) 33.7 G/DL RDW (test code = 1038) 12.8 % NEUTROPHILS (test code = 1008) 84.6 % LYMPHOCYTES (test code = 1010) 6.0 % MONOCYTES (test code = 1011) 8.7 % EOSINOPHILS (test code = 1012) 0.7 % BASOPHILS (test code = 1013) 0.0 % PLATELET COUNT (test code = 1015) 235 K/UL ABSOLUTE NEUTROPHILS (test code = 10.74 K/UL 1066) ABSOLUTE LYMPHOCYTES (test code = 0.76 K/UL 1067) ABSOLUTE MONOCYTES (test code = 1.10 K/UL 1068) ABSOLUTE EOSINOPHILS (test code = 0.09 K/UL 1040) ABSOLUTE BASOPHILS (test code = 0.00 K/UL 1069) COMMENTS (test code = 1016) (NOTE) CBC W/AUTO DIFF WITH PLATELETS [ADDED]2021-10-16 00:00:00 Test Item Value Reference Range Interpretation Comments WBC (test code = 1001) 12.7 K/UL RBC (test code = 1002) 4.57 M/UL HEMOGLOBIN (test code = 1003) 13.7 G/DL HEMATOCRIT (test code = 1004) 40.7 % MCV (test code = 1005) 89.1 fL MCH (test code = 1006) 30.0 PG MCHC (test code = 1007) 33.7 G/DL RDW (test code = 1038) 12.8 % NEUTROPHILS (test code = 1008) 84.6 % LYMPHOCYTES (test code = 1010) 6.0 % MONOCYTES (test code = 1011) 8.7 % EOSINOPHILS (test code = 1012) 0.7 % BASOPHILS (test code = 1013) 0.0 % PLATELET COUNT (test code = 1015) 235 K/UL ABSOLUTE NEUTROPHILS (test code = 10.74 K/UL 1066) ABSOLUTE LYMPHOCYTES (test code = 0.76 K/UL 1067) ABSOLUTE MONOCYTES (test code = 1.10 K/UL 1068) ABSOLUTE EOSINOPHILS (test code = 0.09 K/UL 1040) ABSOLUTE BASOPHILS (test code = 0.00 K/UL 1069) COMMENTS (test code = 1016) (NOTE) HEMOGLOBIN A1c [ADDED]2021-10-16 00:00:00 Test Item Value Reference Range Interpretation Comments HEMOGLOBIN A1c (test code = 38938) 5.7 % HEMOGLOBIN A1c [ADDED]2021-10-16 00:00:00 Test Item Value Reference Range Interpretation Comments HEMOGLOBIN A1c (test code = 70807) 5.7 % HEMOGLOBIN A1c [ADDED]2021-10-16 00:00:00 Test Item Value Reference Range Interpretation Comments HEMOGLOBIN A1c (test code = 30623) 5.7 % LIPID PANEL [ADDED]2021-10-16 00:00:00 Test Item Value Reference Range Interpretation Comments CHOLESTEROL (test code = 2210) 178 MG/DL TRIGLYCERIDES (test code = 2232) 177 MG/DL HDL CHOLESTEROL (test code = 2220) 67 MG/DL CALC LDL CHOL (test code = 2237) 84 MG/DL RISK RATIO LDL/HDL (test code = 1.25 RATIO 2238) LIPID PANEL [ADDED]2021-10-16 00:00:00 Test Item Value Reference Range Interpretation Comments CHOLESTEROL (test code = 2210) 178 MG/DL TRIGLYCERIDES (test code = 2232) 177 MG/DL HDL CHOLESTEROL (test code = 2220) 67 MG/DL CALC LDL CHOL (test code = 2237) 84 MG/DL RISK RATIO LDL/HDL (test code = 1.25 RATIO 2238) COMPREHENSIVE METABOLIC PANEL [ADDED]2021-10-16 00:00:00 Test Item Value Reference Range Interpretation Comments GLUCOSE (test code = 2217) 137 MG/DL BUN (test code = 2208) 21 MG/DL CREATININE (test code = 2214) 0.75 MG/DL eGFR (2020 CKD-EPI) (test 125 ML/MIN/1.73 code = 55138) CALC BUN/CREAT (test code = 28 RATIO 2235) SODIUM (test code = 2231) 144 MEQ/L POTASSIUM (test code = 2228) 4.2 MEQ/L CHLORIDE (test code = 2215) 105 MEQ/L CARBON DIOXIDE (test code = 25 MEQ/L 2205) CALCIUM (test code = 2209) 9.7 MG/DL PROTEIN, TOTAL (test code = 6.7 G/DL 2228) ALBUMIN (test code = 2201) 4.0 G/DL CALC GLOBULIN (test code = 2.7 G/DL 2239) CALC A/G RATIO (test code = 1.5 RATIO 2233) BILIRUBIN, TOTAL (test code = 0.2 MG/DL 2206) ALKALINE PHOSPHATASE (test 150 U/L code = 2204) AST (test code = 2218) 19 U/L ALT (test code = 2219) 42 U/L CBC W/AUTO DIFF WITH PLATELETS [ADDED]2021-10-16 00:00:00 Test Item Value Reference Range Interpretation Comments WBC (test code = 1001) 12.7 K/UL RBC (test code = 1002) 4.57 M/UL HEMOGLOBIN (test code = 1003) 13.7 G/DL HEMATOCRIT (test code = 1004) 40.7 % MCV (test code = 1005) 89.1 fL MCH (test code = 1006) 30.0 PG MCHC (test code = 1007) 33.7 G/DL RDW (test code = 1038) 12.8 % NEUTROPHILS (test code = 1008) 84.6 % LYMPHOCYTES (test code = 1010) 6.0 % MONOCYTES (test code = 1011) 8.7 % EOSINOPHILS (test code = 1012) 0.7 % BASOPHILS (test code = 1013) 0.0 % PLATELET COUNT (test code = 1015) 235 K/UL ABSOLUTE NEUTROPHILS (test code = 10.74 K/UL 1066) ABSOLUTE LYMPHOCYTES (test code = 0.76 K/UL 1067) ABSOLUTE MONOCYTES (test code = 1.10 K/UL 1068) ABSOLUTE EOSINOPHILS (test code = 0.09 K/UL 1040) ABSOLUTE BASOPHILS (test code = 0.00 K/UL 1069) COMMENTS (test code = 1016) (NOTE) COMPREHENSIVE METABOLIC PANEL [ADDED]2021-10-16 00:00:00 Test Item Value Reference Range Interpretation Comments GLUCOSE (test code = 2217) 137 MG/DL BUN (test code = 2208) 21 MG/DL CREATININE (test code = 2214) 0.75 MG/DL eGFR (2020 CKD-EPI) (test 125 ML/MIN/1.73 code = 43812) CALC BUN/CREAT (test code = 28 RATIO 2234) SODIUM (test code = 2231) 144 MEQ/L POTASSIUM (test code = 2228) 4.2 MEQ/L CHLORIDE (test code = 2215) 105 MEQ/L CARBON DIOXIDE (test code = 25 MEQ/L 2205) CALCIUM (test code = 220) 9.7 MG/DL PROTEIN, TOTAL (test code = 6.7 G/DL 2228) ALBUMIN (test code = 220) 4.0 G/DL CALC GLOBULIN (test code = 2.7 G/DL 2239) CALC A/G RATIO (test code = 1.5 RATIO 2233) BILIRUBIN, TOTAL (test code = 0.2 MG/DL 2206) ALKALINE PHOSPHATASE (test 150 U/L code = 220) AST (test code = 2218) 19 U/L ALT (test code = 2219) 42 U/L TSH, THIRD GENERATION [ADDED]2021-10-16 00:00:00 Test Item Value Reference Range Interpretation Comments TSH, THIRD GENERATION (test code 1.210 UIU/ML = 2821) TSH, THIRD GENERATION [ADDED]2021-10-16 00:00:00 Test Item Value Reference Range Interpretation Comments TSH, THIRD GENERATION (test code 1.210 UIU/ML = 2821) TSH, THIRD GENERATION [ADDED]2021-10-16 00:00:00 Test Item Value Reference Range Interpretation Comments TSH, THIRD GENERATION (test code 1.210 UIU/ML = 2821) CBC W/AUTO DIFF WITH PLATELETS [ADDED]2021-10-16 00:00:00 Test Item Value Reference Range Interpretation Comments WBC (test code = 1001) 12.7 K/UL RBC (test code = 1002) 4.57 M/UL HEMOGLOBIN (test code = 1003) 13.7 G/DL HEMATOCRIT (test code = 1004) 40.7 % MCV (test code = 1005) 89.1 fL MCH (test code = 1006) 30.0 PG MCHC (test code = 1007) 33.7 G/DL RDW (test code = 1038) 12.8 % NEUTROPHILS (test code = 1008) 84.6 % LYMPHOCYTES (test code = 1010) 6.0 % MONOCYTES (test code = 1011) 8.7 % EOSINOPHILS (test code = 1012) 0.7 % BASOPHILS (test code = 1013) 0.0 % PLATELET COUNT (test code = 1015) 235 K/UL ABSOLUTE NEUTROPHILS (test code = 10.74 K/UL 1066) ABSOLUTE LYMPHOCYTES (test code = 0.76 K/UL 1067) ABSOLUTE MONOCYTES (test code = 1.10 K/UL 1068) ABSOLUTE EOSINOPHILS (test code = 0.09 K/UL 1040) ABSOLUTE BASOPHILS (test code = 0.00 K/UL 1069) COMMENTS (test code = 1016) (NOTE) CBC W/AUTO DIFF WITH PLATELETS [ADDED]2021-10-16 00:00:00 Test Item Value Reference Range Interpretation Comments WBC (test code = 1001) 12.7 K/UL RBC (test code = 1002) 4.57 M/UL HEMOGLOBIN (test code = 1003) 13.7 G/DL HEMATOCRIT (test code = 1004) 40.7 % MCV (test code = 1005) 89.1 fL MCH (test code = 1006) 30.0 PG MCHC (test code = 1007) 33.7 G/DL RDW (test code = 1038) 12.8 % NEUTROPHILS (test code = 1008) 84.6 % LYMPHOCYTES (test code = 1010) 6.0 % MONOCYTES (test code = 1011) 8.7 % EOSINOPHILS (test code = 1012) 0.7 % BASOPHILS (test code = 1013) 0.0 % PLATELET COUNT (test code = 1015) 235 K/UL ABSOLUTE NEUTROPHILS (test code = 10.74 K/UL 1066) ABSOLUTE LYMPHOCYTES (test code = 0.76 K/UL 1067) ABSOLUTE MONOCYTES (test code = 1.10 K/UL 1068) ABSOLUTE EOSINOPHILS (test code = 0.09 K/UL 1040) ABSOLUTE BASOPHILS (test code = 0.00 K/UL 1069) COMMENTS (test code = 1016) (NOTE) SARS-CoV-2 (COVID-19) by RT-PCR (HIGH RISK)2020-04-19 00:00:00 Test Item Value Reference Range Interpretation Comments SARS-CoV-2 INTERPRETATION (test POSITIVE code = 79715) SOURCE (test code = 51449) NOT SPECIFIED SARS-CoV-2 (COVID-19) by RT-PCR (HIGH RISK)2020-04-19 00:00:00 Test Item Value Reference Range Interpretation Comments SARS-CoV-2 INTERPRETATION (test POSITIVE code = 48224) SOURCE (test code = 59523) NOT SPECIFIED SARS-CoV-2 (COVID-19) by RT-PCR (HIGH RISK)2020-04-19 00:00:00 Test Item Value Reference Range Interpretation Comments SARS-CoV-2 INTERPRETATION (test POSITIVE code = 58821) SOURCE (test code = 04604) NOT SPECIFIED SARS-CoV-2 (COVID-19) by RT-PCR (HIGH RISK)2020-04-19 00:00:00 Test Item Value Reference Range Interpretation Comments SARS-CoV-2 INTERPRETATION (test POSITIVE code = 79036) SOURCE (test code = 97153) NOT SPECIFIED SARS-CoV-2 (COVID-19) by RT-PCR (HIGH RISK)2020-04-19 00:00:00 Test Item Value Reference Range Interpretation Comments SARS-CoV-2 INTERPRETATION (test POSITIVE code = 18727) SOURCE (test code = 56686) NOT SPECIFIED SARS-CoV-2 (COVID-19) by RT-PCR (HIGH RISK)2020-04-19 00:00:00 Test Item Value Reference Range Interpretation Comments SARS-CoV-2 INTERPRETATION (test POSITIVE code = 47398) SOURCE (test code = 91249) NOT SPECIFIED SARS-CoV-2 (COVID-19) by RT-PCR (HIGH RISK)2020-03-31 00:00:00 Test Item Value Reference Range Interpretation Comments SARS-CoV-2 INTERPRETATION (test POSITIVE code = 46782) SOURCE (test code = 42044) NOT SPECIFIED SARS-CoV-2 (COVID-19) by RT-PCR (HIGH RISK)2020-03-31 00:00:00 Test Item Value Reference Range Interpretation Comments SARS-CoV-2 INTERPRETATION (test POSITIVE code = 11610) SOURCE (test code = 87700) NOT SPECIFIED SARS-CoV-2 (COVID-19) by RT-PCR (HIGH RISK)2020-03-31 00:00:00 Test Item Value Reference Range Interpretation Comments SARS-CoV-2 INTERPRETATION (test POSITIVE code = 66609) SOURCE (test code = 08248) NOT SPECIFIED SARS-CoV-2 (COVID-19) by RT-PCR (HIGH RISK)2020-03-31 00:00:00 Test Item Value Reference Range Interpretation Comments SARS-CoV-2 INTERPRETATION (test POSITIVE code = 28212) SOURCE (test code = 38473) NOT SPECIFIED SARS-CoV-2 (COVID-19) by RT-PCR (HIGH RISK)2020-03-31 00:00:00 Test Item Value Reference Range Interpretation Comments SARS-CoV-2 INTERPRETATION (test POSITIVE code = 78788) SOURCE (test code = 89522) NOT SPECIFIED SARS-CoV-2 (COVID-19) by RT-PCR (HIGH RISK)2020-03-31 00:00:00 Test Item Value Reference Range Interpretation Comments SARS-CoV-2 INTERPRETATION (test POSITIVE code = 73793) SOURCE (test code = 77486) NOT SPECIFIED COMPREHENSIVE METABOLIC [id number] 00:00:00 Test Item Value Reference Range Interpretation Comments GLUCOSE (test code = 2217) 100 MG/DL BUN (test code = 2208) 16 MG/DL CREATININE (test code = 2214) 0.72 MG/DL eGFR AMER. (test code 148 ML/MIN/1.73 = 86478) eGFR NON- AMER. (test 128 ML/MIN/1.73 code = 51164) CALC BUN/CREAT (test code = 22 RATIO 2235) SODIUM (test code = 2231) 141 MEQ/L POTASSIUM (test code = 2228) 4.2 MEQ/L CHLORIDE (test code = 2215) 101 MEQ/L CARBON DIOXIDE (test code = 28 MEQ/L 2206) CALCIUM (test code = 2209) 9.9 MG/DL PROTEIN, TOTAL (test code = 7.4 G/DL 2228) ALBUMIN (test code = 2201) 4.5 G/DL CALC GLOBULIN (test code = 2.9 G/DL 2240) CALC A/G RATIO (test code = 1.6 RATIO 2234) BILIRUBIN, TOTAL (test code = 1.0 MG/DL 2206) ALKALINE PHOSPHATASE (test 58 U/L code = 2204) AST (test code = 2218) 20 U/L ALT (test code = 2219) 32 U/L COMPREHENSIVE METABOLIC [id number] 00:00:00 Test Item Value Reference Range Interpretation Comments GLUCOSE (test code = 2217) 100 MG/DL BUN (test code = 2208) 16 MG/DL CREATININE (test code = 2214) 0.72 MG/DL eGFR AMER. (test code 148 ML/MIN/1.73 = 90005) eGFR NON- AMER. (test 128 ML/MIN/1.73 code = 55463) CALC BUN/CREAT (test code = 22 RATIO 2235) SODIUM (test code = 2231) 141 MEQ/L POTASSIUM (test code = 2228) 4.2 MEQ/L CHLORIDE (test code = 2215) 101 MEQ/L CARBON DIOXIDE (test code = 28 MEQ/L 220) CALCIUM (test code = 2209) 9.9 MG/DL PROTEIN, TOTAL (test code = 7.4 G/DL 2228) ALBUMIN (test code = 2201) 4.5 G/DL CALC GLOBULIN (test code = 2.9 G/DL 224) CALC A/G RATIO (test code = 1.6 RATIO 2234) BILIRUBIN, TOTAL (test code = 1.0 MG/DL 2206) ALKALINE PHOSPHATASE (test 58 U/L code = 2204) AST (test code = 2218) 20 U/L ALT (test code = 2219) 32 U/L LIPID [id number] 00:00:00 Test Item Value Reference Range Interpretation Comments CHOLESTEROL (test code = 2210) 133 MG/DL TRIGLYCERIDES (test code = 2232) 55 MG/DL HDL CHOLESTEROL (test code = 2220) 53 MG/DL CALC LDL CHOL (test code = 2237) 69 MG/DL RISK RATIO LDL/HDL (test code = 1.30 RATIO 2238) LIPID [id number] 00:00:00 Test Item Value Reference Range Interpretation Comments CHOLESTEROL (test code = 2210) 133 MG/DL TRIGLYCERIDES (test code = 2232) 55 MG/DL HDL CHOLESTEROL (test code = 2220) 53 MG/DL CALC LDL CHOL (test code = 2237) 69 MG/DL RISK RATIO LDL/HDL (test code = 1.30 RATIO 2238) CBC W/AUTO [id number] 00:00:00 Test Item Value Reference Range Interpretation Comments WBC (test code = 1001) 9.9 K/UL RBC (test code = 1002) 5.13 M/UL HEMOGLOBIN (test code = 1003) 15.9 G/DL HEMATOCRIT (test code = 1004) 44.6 % MCV (test code = 1005) 86.9 fL MCH (test code = 1006) 31.0 PG MCHC (test code = 1007) 35.7 G/DL RDW (test code = 1038) 11.7 % NEUTROPHILS (test code = 1008) 75.5 % LYMPHOCYTES (test code = 1010) 12.2 % MONOCYTES (test code = 1011) 11.7 % EOSINOPHILS (test code = 1012) 0.5 % BASOPHILS (test code = 1013) 0.1 % PLATELET COUNT (test code = 1015) 266 K/UL CBC W/AUTO [id number] 00:00:00 Test Item Value Reference Range Interpretation Comments WBC (test code = 1001) 9.9 K/UL RBC (test code = 1002) 5.13 M/UL HEMOGLOBIN (test code = 1003) 15.9 G/DL HEMATOCRIT (test code = 1004) 44.6 % MCV (test code = 1005) 86.9 fL MCH (test code = 1006) 31.0 PG MCHC (test code = 1007) 35.7 G/DL RDW (test code = 1038) 11.7 % NEUTROPHILS (test code = 1008) 75.5 % LYMPHOCYTES (test code = 1010) 12.2 % MONOCYTES (test code = 1011) 11.7 % EOSINOPHILS (test code = 1012) 0.5 % BASOPHILS (test code = 1013) 0.1 % PLATELET COUNT (test code = 1015) 266 K/UL CBC W/AUTO [id number] 00:00:00 Test Item Value Reference Range Interpretation Comments WBC (test code = 1001) 9.9 K/UL RBC (test code = 1002) 5.13 M/UL HEMOGLOBIN (test code = 1003) 15.9 G/DL HEMATOCRIT (test code = 1004) 44.6 % MCV (test code = 1005) 86.9 fL MCH (test code = 1006) 31.0 PG MCHC (test code = 1007) 35.7 G/DL RDW (test code = 1038) 11.7 % NEUTROPHILS (test code = 1008) 75.5 % LYMPHOCYTES (test code = 1010) 12.2 % MONOCYTES (test code = 1011) 11.7 % EOSINOPHILS (test code = 1012) 0.5 % BASOPHILS (test code = 1013) 0.1 % PLATELET COUNT (test code = 1015) 266 K/UL LIPID [id number] 00:00:00 Test Item Value Reference Range Interpretation Comments CHOLESTEROL (test code = 2210) 133 MG/DL TRIGLYCERIDES (test code = 2232) 55 MG/DL HDL CHOLESTEROL (test code = 2220) 53 MG/DL CALC LDL CHOL (test code = 2237) 69 MG/DL RISK RATIO LDL/HDL (test code = 1.30 RATIO 2238) LIPID [id number] 00:00:00 Test Item Value Reference Range Interpretation Comments CHOLESTEROL (test code = 2210) 133 MG/DL TRIGLYCERIDES (test code = 2232) 55 MG/DL HDL CHOLESTEROL (test code = 2220) 53 MG/DL CALC LDL CHOL (test code = 2237) 69 MG/DL RISK RATIO LDL/HDL (test code = 1.30 RATIO 2238) CBC W/AUTO [id number] 00:00:00 Test Item Value Reference Range Interpretation Comments WBC (test code = 1001) 9.9 K/UL RBC (test code = 1002) 5.13 M/UL HEMOGLOBIN (test code = 1003) 15.9 G/DL HEMATOCRIT (test code = 1004) 44.6 % MCV (test code = 1005) 86.9 fL MCH (test code = 1006) 31.0 PG MCHC (test code = 1007) 35.7 G/DL RDW (test code = 1038) 11.7 % NEUTROPHILS (test code = 1008) 75.5 % LYMPHOCYTES (test code = 1010) 12.2 % MONOCYTES (test code = 1011) 11.7 % EOSINOPHILS (test code = 1012) 0.5 % BASOPHILS (test code = 1013) 0.1 % PLATELET COUNT (test code = 1015) 266 K/UL CBC W/AUTO [id number] 00:00:00 Test Item Value Reference Range Interpretation Comments WBC (test code = 1001) 9.9 K/UL RBC (test code = 1002) 5.13 M/UL HEMOGLOBIN (test code = 1003) 15.9 G/DL HEMATOCRIT (test code = 1004) 44.6 % MCV (test code = 1005) 86.9 fL MCH (test code = 1006) 31.0 PG MCHC (test code = 1007) 35.7 G/DL RDW (test code = 1038) 11.7 % NEUTROPHILS (test code = 1008) 75.5 % LYMPHOCYTES (test code = 1010) 12.2 % MONOCYTES (test code = 1011) 11.7 % EOSINOPHILS (test code = 1012) 0.5 % BASOPHILS (test code = 1013) 0.1 % PLATELET COUNT (test code = 1015) 266 K/UL CBC W/AUTO [id number] 00:00:00 Test Item Value Reference Range Interpretation Comments WBC (test code = 1001) 9.9 K/UL RBC (test code = 1002) 5.13 M/UL HEMOGLOBIN (test code = 1003) 15.9 G/DL HEMATOCRIT (test code = 1004) 44.6 % MCV (test code = 1005) 86.9 fL MCH (test code = 1006) 31.0 PG MCHC (test code = 1007) 35.7 G/DL RDW (test code = 1038) 11.7 % NEUTROPHILS (test code = 1008) 75.5 % LYMPHOCYTES (test code = 1010) 12.2 % MONOCYTES (test code = 1011) 11.7 % EOSINOPHILS (test code = 1012) 0.5 % BASOPHILS (test code = 1013) 0.1 % PLATELET COUNT (test code = 1015) 266 K/UL COMPREHENSIVE METABOLIC [id number] 00:00:00 Test Item Value Reference Range Interpretation Comments GLUCOSE (test code = 2217) 100 MG/DL BUN (test code = 2208) 16 MG/DL CREATININE (test code = 2214) 0.72 MG/DL eGFR AMER. (test code 148 ML/MIN/1.73 = 71238) eGFR NON- AMER. (test 128 ML/MIN/1.73 code = 15137) CALC BUN/CREAT (test code = 22 RATIO 2235) SODIUM (test code = 2231) 141 MEQ/L POTASSIUM (test code = 2228) 4.2 MEQ/L CHLORIDE (test code = 2215) 101 MEQ/L CARBON DIOXIDE (test code = 28 MEQ/L 2206) CALCIUM (test code = 2209) 9.9 MG/DL PROTEIN, TOTAL (test code = 7.4 G/DL 2228) ALBUMIN (test code = 2201) 4.5 G/DL CALC GLOBULIN (test code = 2.9 G/DL 2240) CALC A/G RATIO (test code = 1.6 RATIO 2234) BILIRUBIN, TOTAL (test code = 1.0 MG/DL 2207) ALKALINE PHOSPHATASE (test 58 U/L code = 2204) AST (test code = 2218) 20 U/L ALT (test code = 2219) 32 U/L COMPREHENSIVE METABOLIC [id number] 00:00:00 Test Item Value Reference Range Interpretation Comments GLUCOSE (test code = 2217) 100 MG/DL BUN (test code = 2208) 16 MG/DL CREATININE (test code = 2214) 0.72 MG/DL eGFR AMER. (test code 148 ML/MIN/1.73 = 77162) eGFR NON- AMER. (test 128 ML/MIN/1.73 code = 19953) CALC BUN/CREAT (test code = 22 RATIO 2235) SODIUM (test code = 2231) 141 MEQ/L POTASSIUM (test code = 2228) 4.2 MEQ/L CHLORIDE (test code = 2215) 101 MEQ/L CARBON DIOXIDE (test code = 28 MEQ/L 2206) CALCIUM (test code = 2209) 9.9 MG/DL PROTEIN, TOTAL (test code = 7.4 G/DL 2229) ALBUMIN (test code = 2201) 4.5 G/DL CALC GLOBULIN (test code = 2.9 G/DL 2240) CALC A/G RATIO (test code = 1.6 RATIO 2234) BILIRUBIN, TOTAL (test code = 1.0 MG/DL 2207) ALKALINE PHOSPHATASE (test 58 U/L code = 2204) AST (test code = 2218) 20 U/L ALT (test code = 2219) 32 U/L COMPREHENSIVE METABOLIC [id number] 00:00:00 Test Item Value Reference Range Interpretation Comments GLUCOSE (test code = 2217) 100 MG/DL BUN (test code = 2208) 16 MG/DL CREATININE (test code = 2214) 0.72 MG/DL eGFR AMER. (test code 148 ML/MIN/1.73 = 66435) eGFR NON- AMER. (test 128 ML/MIN/1.73 code = 41714) CALC BUN/CREAT (test code = 22 RATIO 2235) SODIUM (test code = 2231) 141 MEQ/L POTASSIUM (test code = 2228) 4.2 MEQ/L CHLORIDE (test code = 2215) 101 MEQ/L CARBON DIOXIDE (test code = 28 MEQ/L 2205) CALCIUM (test code = 2209) 9.9 MG/DL PROTEIN, TOTAL (test code = 7.4 G/DL 2228) ALBUMIN (test code = 2201) 4.5 G/DL CALC GLOBULIN (test code = 2.9 G/DL 224) CALC A/G RATIO (test code = 1.6 RATIO 223) BILIRUBIN, TOTAL (test code = 1.0 MG/DL 2206) ALKALINE PHOSPHATASE (test 58 U/L code = 2204) AST (test code = 2218) 20 U/L ALT (test code = 2219) 32 U/L LIPID [id number] 00:00:00 Test Item Value Reference Range Interpretation Comments CHOLESTEROL (test code = 2210) 133 MG/DL TRIGLYCERIDES (test code = 2232) 55 MG/DL HDL CHOLESTEROL (test code = 2220) 53 MG/DL CALC LDL CHOL (test code = 2237) 69 MG/DL RISK RATIO LDL/HDL (test code = 1.30 RATIO 2238) COMPREHENSIVE METABOLIC [id number] 00:00:00 Test Item Value Reference Range Interpretation Comments GLUCOSE (test code = 2217) 100 MG/DL BUN (test code = 2208) 16 MG/DL CREATININE (test code = 2214) 0.72 MG/DL eGFR AMER. (test code 148 ML/MIN/1.73 = 04110) eGFR NON- AMER. (test 128 ML/MIN/1.73 code = 46955) CALC BUN/CREAT (test code = 22 RATIO 2235) SODIUM (test code = 2231) 141 MEQ/L POTASSIUM (test code = 2228) 4.2 MEQ/L CHLORIDE (test code = 2215) 101 MEQ/L CARBON DIOXIDE (test code = 28 MEQ/L 2205) CALCIUM (test code = 2209) 9.9 MG/DL PROTEIN, TOTAL (test code = 7.4 G/DL 2228) ALBUMIN (test code = 2201) 4.5 G/DL CALC GLOBULIN (test code = 2.9 G/DL 2240) CALC A/G RATIO (test code = 1.6 RATIO 2234) BILIRUBIN, TOTAL (test code = 1.0 MG/DL 2206) ALKALINE PHOSPHATASE (test 58 U/L code = 2204) AST (test code = 2218) 20 U/L ALT (test code = 2219) 32 U/L LIPID [id number] 00:00:00 Test Item Value Reference Range Interpretation Comments CHOLESTEROL (test code = 2210) 133 MG/DL TRIGLYCERIDES (test code = 2232) 55 MG/DL HDL CHOLESTEROL (test code = 2220) 53 MG/DL CALC LDL CHOL (test code = 2237) 69 MG/DL RISK RATIO LDL/HDL (test code = 1.30 RATIO 2238) CBC W/AUTO [id number] 00:00:00 Test Item Value Reference Range Interpretation Comments WBC (test code = 1001) 9.9 K/UL RBC (test code = 1002) 5.13 M/UL HEMOGLOBIN (test code = 1003) 15.9 G/DL HEMATOCRIT (test code = 1004) 44.6 % MCV (test code = 1005) 86.9 fL MCH (test code = 1006) 31.0 PG MCHC (test code = 1007) 35.7 G/DL RDW (test code = 1038) 11.7 % NEUTROPHILS (test code = 1008) 75.5 % LYMPHOCYTES (test code = 1010) 12.2 % MONOCYTES (test code = 1011) 11.7 % EOSINOPHILS (test code = 1012) 0.5 % BASOPHILS (test code = 1013) 0.1 % PLATELET COUNT (test code = 1015) 266 K/UL CBC W/AUTO [id number] 00:00:00 Test Item Value Reference Range Interpretation Comments WBC (test code = 1001) 9.9 K/UL RBC (test code = 1002) 5.13 M/UL HEMOGLOBIN (test code = 1003) 15.9 G/DL HEMATOCRIT (test code = 1004) 44.6 % MCV (test code = 1005) 86.9 fL MCH (test code = 1006) 31.0 PG MCHC (test code = 1007) 35.7 G/DL RDW (test code = 1038) 11.7 % NEUTROPHILS (test code = 1008) 75.5 % LYMPHOCYTES (test code = 1010) 12.2 % MONOCYTES (test code = 1011) 11.7 % EOSINOPHILS (test code = 1012) 0.5 % BASOPHILS (test code = 1013) 0.1 % PLATELET COUNT (test code = 1015) 266 K/UL CBC W/AUTO [id number] 00:00:00 Test Item Value Reference Range Interpretation Comments WBC (test code = 1001) 9.9 K/UL RBC (test code = 1002) 5.13 M/UL HEMOGLOBIN (test code = 1003) 15.9 G/DL HEMATOCRIT (test code = 1004) 44.6 % MCV (test code = 1005) 86.9 fL MCH (test code = 1006) 31.0 PG MCHC (test code = 1007) 35.7 G/DL RDW (test code = 1038) 11.7 % NEUTROPHILS (test code = 1008) 75.5 % LYMPHOCYTES (test code = 1010) 12.2 % MONOCYTES (test code = 1011) 11.7 % EOSINOPHILS (test code = 1012) 0.5 % BASOPHILS (test code = 1013) 0.1 % PLATELET COUNT (test code = 1015) 266 K/UL
--- NOTE | 2023-02-09 11:34 | RAD REPORT ---
EXAM DESCRIPTION: CT - Abdomen Pelvis Wo Contrast - 02/09/2023 11:21 am CLINICAL HISTORY: Abdominal pain. FLANK PAIN COMPARISON: No comparisons TECHNIQUE: CT imaging of the abdomen and pelvis was performed without contrast. Solid organ, bowel a nd vascular assessment is limited due to lack of IV and oral contrast. All CT scans are performed using dose optimization technique as appropriate and may include automated exposure control or mA/KV adjustment according to patient size. FINDINGS: The lower lung david are clear. The liver, spleen, pancreas, adrenal glands and kidneys are within normal limits for a limited non-co ntrast examination. No bowel obstruction, free air, free fluid or abscess. The appendix is normal. There are multiple wedge compression fractures seen involving lower thoracic levels, likely acute or subacute in timeframe. Loss of vertebral body height is estimated at 15% without significant canal co mpromise. The bones are somewhat demineralized for age. IMPRESSION: The bones appear demineralized for age. Multiple mild wedge compression deformities like ly related to osteopenia are seen lower thoracic spine resulting and mild loss of vertebral body heig ht without canal compromise as detailed. This pattern has been described as a sequela of long-term st eroid use. A limited non-contrast examination was performed as detailed.
[2023-02-09] MEDS ORDERED: KETOROLAC 30 MG/ML INJ ONE (11:45)
[2023-02-09 11:56] LABS: Absolute Lymphocytes (CBC) 0.6 K/uL (0.7-4.9); Hematocrit 42.4 % (39.6-49.0); Lymphocytes % 4.3 % (15.3-44.8); MCV 91.3 fL (80-100); MPV 6.7 fL (7.6-11.3); RBC Red Blood Cell Count 4.64 M/uL (4.33-5.43)
[2023-02-09 11:58] LABS: Specific Gravity 1.024 (1.005-1.030); Urine Bacteria None Seen /HPF (<20); Urine Bilirubin NEGATIVE (Negative); Urine Blood 2+ (Negative); Urine Clarity Clear (Clear); Urine Color Yellow (Yellow); Urine Glucose NEGATIVE (Negative); Urine Mucus 4+ /HPF (None Seen); Urine Protein TRACE (Negative); Urine RBC <5 /HPF (None Seen); Urine Urobilinogen Normal (Normal); Urine pH 5.5 (5.0-7.0)
[2023-02-09 12:27] LABS: Albumin 3.6 g/dL (3.4-5.0); Bilirubin Total 0.6 mg/dL (0.2-1.0); Protein, Total 7.6 g/dL (6.4-8.2)
[2023-02-09 12:32] LABS: Blood Morphology Comment NOT SEEN (NOT SEEN); Platelet Estimate ADEQ; White Blood Cell Scan OK (OK)
--- NOTE | 2023-02-09 12:46 | EDPHYS ---
Physician Documentation [facility] Name: Chriss Avila Age: 32 yrs Sex: Male : 1990 Arrival Date: 02/09/2023 Time: 10:29 Bed 8 Private MD: ED Physician Nathanael Ireland HPI: 02/09 11:08 This 32 yrs old Male presents to ER via Ambulatory with complaints of Flank sp3 Pain. 11:08 32-year-old male with history of hypertension presents to the ED for chief complaint sp3 bilateral flank pain which is been going on for several weeks but over the last 2 to 3 days is gotten significantly worse. Patient states that he is got pain right greater than left however bilateral and went to a clinic who referred him here. There is concerns of possible kidney stone. He denies any dysuria, visualized hematuria in his urine, fever, anterior abdominal pain, chest pain, shortness of breath, fever, known sick contacts, travel history, URI symptoms, nausea, vomiting, diarrhea, any other signs or symptoms on ROS at this time.. Historical: - Allergies: 10:54 No Known Allergies; iw - Home Meds: 10:54 None [Active]; iw - PMHx: 10:54 Hypertensive disorder; iw - PSHx: 10:54 None; iw - Immunization history:: Adult Immunizations unknown, Client reports receiving the 2nd dose of the Covid vaccine. - Social history:: Smoking status: Patient denies any tobacco usage or history of. ROS: 11:09 Constitutional: Negative for fever, chills, and weight loss, Eyes: Negative for injury, sp3 pain, redness, and discharge, ENT: Negative for injury, pain, and discharge, Neck: Negative for injury, pain, and swelling, Cardiovascular: Negative for chest pain, palpitations, and edema, Respiratory: Negative for shortness of breath, cough, wheezing, and pleuritic chest pain, MS/Extremity: Negative for injury and deformity, Skin: Negative for injury, rash, and discoloration, Neuro: Negative for headache, weakness, numbness, tingling, and seizure, Psych: Negative for depression, anxiety, suicide ideation, homicidal ideation, and hallucinations, Allergy/Immunology: Negative for hives, rash, and allergies, Endocrine: Negative for neck swelling, polydipsia, polyuria, polyphagia, and marked weight changes, Hematologic/Lymphatic: Negative for swollen nodes, abnormal bleeding, and unusual bruising. 11:09 All other systems are negative. Exam: 11:09 Constitutional: This is a well developed, well nourished patient who is awake, alert, sp3 and in no acute distress. Head/Face: Normocephalic, atraumatic. Eyes: Pupils equal round and reactive to light, extra-ocular motions intact. Lids and lashes normal. Conjunctiva and sclera are non-icteric and not injected. Cornea within normal limits. Periorbital areas with no swelling, redness, or edema. ENT: Nares patent. No nasal discharge, no septal abnormalities noted. External auditory canals are clear. Oropharynx with no redness, swelling, or masses, exudates, or evidence of obstruction, uvula midline. Mucous membranes moist. Neck: Trachea midline, no thyromegaly or masses palpated, and no cervical lymphadenopathy. Supple, full range of motion without nuchal rigidity, or vertebral point tenderness. No Meningismus. Chest/axilla: Normal chest wall appearance and motion. Nontender with no deformity. No lesions are appreciated. Cardiovascular: Regular rate and rhythm with a normal S1 and S2. No gallops, murmurs, or rubs. Normal PMI, no JVD. No pulse deficits. Respiratory: Lungs have equal breath sounds bilaterally, clear to auscultation and percussion. No rales, rhonchi or wheezes noted. No increased work of breathing, no retractions or nasal flaring. Skin: Warm, dry with normal turgor. Normal color with no rashes, no lesions, and no evidence of cellulitis. MS/ Extremity: Pulses equal, no cyanosis. Neurovascular intact. Full, normal range of motion. Neuro: Awake and alert, GCS 15, oriented to person, place, time, and situation. Cranial nerves II-XII grossly intact. Motor strength 5/5 in all extremities. Sensory grossly intact. Cerebellar exam normal. Normal gait. Psych: Awake, alert, with orientation to person, place and time. Behavior, mood, and affect are within normal limits. 11:09 Back: Bilateral flank pain present. No anterior abdominal pain noted. No rebound or guarding noted. Hidalgo sign is negative. Exam is limited by patient's obesity and body habitus.. Vital Signs: 10:52 BP 171 / 110; Pulse 96; Resp 16; Temp 98.2; Pulse Ox 98% on R/A; Weight 128.37 kg; iw Height 5 ft. 10 in. ; Pain 10/10; 13:00 BP 157 / 89; Pulse 88; Resp 16; Pulse Ox 99% ; bp 10:52 Body Mass Index 40.61 (128.37 kg, 177.8 cm) iw 10:52 Pain Scale: Adult iw MDM: 11:04 Patient medically screened. sp3 11:10 Data reviewed: vital signs, nurses notes, lab test result(s), radiologic studies. ED sp3 course: 32-year-old male with bilateral back pain in the mid back. Differential diagnosis is broad includes kidney stone, UTI, pyelonephritis, musculoskeletal pain, aortic pathology, intestinal pathology, among others. Will obtain CT scan of the abdomen pelvis noncontrast, laboratory values, urine analysis and administer ketorolac 30 mg IV for pain control. Disposition pending work-up and patient course.. 12:44 ED course: Laboratory work-up is negative and urine is normal. Blood pressure has come sp3 down on its own. On CT scan, there are no kidney stones or other intra-abdominal pathology. However patient has several thoracic compression fractures wedge in origin presumably from steroid use or other inflammatory process that is occurring. None of these are acute in nature. We will discharge patient home to a new PCP and orthopedic follow-up. There is no concern for spinal cord injury or damage and patient has normal neurological exam. Will discharge on NSAIDs for pain control patient does feel better after ketorolac IV here in the ER.. 02/09 11:08 Order name: CBC with Diff; Complete Time: 12:38 sp3 02/09 11:08 Order name: CMP sp3 02/09 11:08 Order name: Lipase sp3 02/09 11:08 Order name: Urinalysis w/ reflexes; Complete Time: 12:38 sp3 02/09 12:00 Order name: CBC Smear Scan; Complete Time: 12:38 EDMS 02/09 11:08 Order name: CT Abd/Pelvis - Without Contrast; Complete Time: 12:38 sp3 02/09 11:08 Order name: IV Saline Lock; Complete Time: 11:47 sp3 02/09 11:08 Order name: Labs collected and sent; Complete Time: 11:47 sp3 Administered Medications: 11:47 Drug: TORadol - Ketorolac IVP 30 mg Route: IVP; Site: right antecubital; bp 13:01 Follow up: Response: No adverse reaction bp Disposition Summary: 02/09/23 12:46 Discharge Ordered Location: Home sp3 Condition: Stable sp3 Diagnosis - 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 sp3 Followup: sp3 - With: Jefferson Harrell MD - When: Upon discharge from the Emergency Department - Reason: Recheck today's complaints Followup: sp3 - With: Eladio Singleton MD - When: Upon discharge from the Emergency Department - Reason: Recheck today's complaints Discharge Instructions: - Discharge Summary Sheet sp3 - Spinal Compression Fracture sp3 Forms: - Medication Reconciliation Form sp3 - Thank You Letter sp3 - Antibiotic Education sp3 - Prescription Opioid Use sp3 - Work release form mb9 Prescriptions: - Diclofenac Sodium 75 mg Oral Tablet Sustained Release - take 1 tablet by ORAL route 2 times per day; 30 tablet; Refills: 0, Product sp3 Selection Permitted Signatures: Dispatcher [employer] Rebecca Mc, Jerson Rodriguez RN, RN RN bp Patel, Setul, MD MD sp3
--- NOTE | 2023-02-09 12:46 | ER ---
Nurse's Notes [facility] Name: Chriss Avila Age: 32 yrs Sex: Male : 1990 Arrival Date: 02/09/2023 Time: 10:29 Bed 8 Private MD: Diagnosis: 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 Presentation: 02/09 10:52 Chief complaint: Patient states: terra mid back pain for more than a month. Coronavirus iw screen: At this time, the client does not indicate any symptoms associated with coronavirus-19. Ebola Screen: Patient negative for fever greater than or equal to 101.5 degrees Fahrenheit, and additional compatible Ebola Virus Disease symptoms Patient denies exposure to infectious person. Patient denies travel to an Ebola-affected area in the 21 days before illness onset. No symptoms or risks identified at this time. Initial Sepsis Screen: Does the patient meet any 2 criteria? No. Patient's initial sepsis screen is negative. Does the patient have a suspected source of infection? No. Patient's initial sepsis screen is negative. Risk Assessment: Do you want to hurt yourself or someone else? Patient reports no desire to harm self or others. Onset of symptoms was December 2022. 10:52 Method Of Arrival: Ambulatory iw 10:52 Acuity: JJ 3 iw Triage Assessment: 11:00 General: Appears in no apparent distress. uncomfortable, Behavior is calm, cooperative, bp appropriate for age. 11:00 Pain: Denies pain. EENT: No deficits noted. Neuro: No deficits noted. Cardiovascular: bp No deficits noted. Respiratory: No deficits noted. GI: No signs and/or symptoms were reported involving the gastrointestinal system. : No signs and/or symptoms were reported regarding the genitourinary system. Derm: No deficits noted. Musculoskeletal: No deficits noted. Historical: - Allergies: 10:54 No Known Allergies; iw - Home Meds: 10:54 None [Active]; iw - PMHx: 10:54 Hypertensive disorder; iw - PSHx: 10:54 None; iw - Immunization history:: Adult Immunizations unknown, Client reports receiving the 2nd dose of the Covid vaccine. - Social history:: Smoking status: Patient denies any tobacco usage or history of. Screenin:00 [facility] ED Fall Risk Assessment (Adult) History of falling in the last 3 months, bp including since admission No falls in past 3 months (0 pts). Abuse screen: Denies threats or abuse. Denies injuries from another. Nutritional screening: No deficits noted. Tuberculosis screening: No symptoms or risk factors identified. Assessment: 11:00 General: SEE TRIAGE NOTE. bp 13:01 Reassessment: PT DC HOME AMBULATORY. bp Vital Signs: 10:52 BP 171 / 110; Pulse 96; Resp 16; Temp 98.2; Pulse Ox 98% on R/A; Weight 128.37 kg; iw Height 5 ft. 10 in. ; Pain 10/10; 13:00 BP 157 / 89; Pulse 88; Resp 16; Pulse Ox 99% ; bp 10:52 Body Mass Index 40.61 (128.37 kg, 177.8 cm) iw 10:52 Pain Scale: Adult iw ED Course: 10:39 Patient arrived in ED. am2 10:44 Nathanael Ireland MD is Attending Physician. sp3 10:54 Triage completed. iw 10:54 Arm band placed on. iw 11:10 Jerson Tavera, KATHIE is Primary Nurse. bp 11:22 CT Abd/Pelvis - Without Contrast In Process Unspecified. EDMS 11:48 Inserted saline lock: 22 gauge in right antecubital area, using aseptic technique. bp Blood collected. 12:00 Patient has correct armband on for positive identification. Bed in low position. Call bp light in reach. Side rails up X2. 12:00 No provider procedures requiring assistance completed. IV discontinued, intact, bp bleeding controlled, No redness/swelling at site. Pressure dressing applied. 12:45 Jefferson Harrell MD is Referral Physician. sp3 12:45 Eladio Singleton MD is Referral Physician. sp3 Administered Medications: 11:47 Drug: TORadol - Ketorolac IVP 30 mg Route: IVP; Site: right antecubital; bp 13:01 Follow up: Response: No adverse reaction bp Outcome: 12:46 Discharge ordered by . sp3 13:00 Discharged to home ambulatory. bp 13:00 Condition: stable bp 13:00 Discharge instructions given to patient, Instructed on discharge instructions, follow up and referral plans. medication usage, Demonstrated understanding of instructions, follow-up care, medications, Prescriptions given X 1. 13:03 Patient left the ED. bp Signatures: Dispatcher [employer] Rebecca Mc, KATHIE RN Kassandra Limon am2 Jerson Tavera RN RN Nathanael Puentes MD MD sp3
[2023-02-09 13:01] LABS: Potassium 3.8 mEq/L (3.5-5.1)
[2023-02-09 13:24] VITALS: TEMP 98.2
[2023-02-09 13:31] VITALS: BP 157/89; O2SAT 99
== END 2023-02-09 13:03 | disposition home or self-care (01) ==
LOC: ER 10:29
DX: S22.000A Wedge compression fracture of unspecified thoracic vertebra, initial encounter for closed fracture (principal); I10 Essential (primary) hypertension
CPT/HCPCS: 36415; 74176; 80053; 81001; 83690; 85025; 96374; 99284